=== PATIENT | female | born 1950 | race Caucasian/White ===

== ENCOUNTER → 2020-09-26 | Outpatient (CLI) | payer MEDICARE, OTHER | LOC: M.RAD 14:36 | PROVIDERS: ATTEND Nurse Practitioner Family | DX: N63.10 Unspecified lump in the right breast, unspecified quadrant (principal); R92.8 Other abnormal and inconclusive findings on diagnostic imaging of breast ==

== ENCOUNTER → 2020-09-27 | Outpatient (CLI) | payer MEDICARE, OTHER ==
--- NOTE | 2020-10-03 15:07 | PATH ---
[address] [address] PATHOLOGY RPT PROCEDURE Name: LENA NEWSOME Room: [facility].#: [id number] Admission: 09/27/20 Date of : 46 Discharge: Report #: [id number] Path Case #: [id number] [facility] Accession Number: [id number] . 01 Material submitted: . PART A: breast - RIGHT BREAST 10 OCLOCK 1CM FROM NIPPLE. Modifiers: right, 10:00, 1CM PART B: breast - RIGHT BREAST 10 OCLOCK 4CM FROM NIPPLE. Modifiers: right, 10:00, 4CM . 01 Clinical history: . US/MAMMOTOME BX RT BREAST/MASS A- 2.38 X 3.09 X 1.32 CM B- 2.24 X 2.52 X 1.71 CM . 02 Diagnosis: A. 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 SEE COMMENT. . B. Right breast, 10:00, 4 cm from nipple, image-guided core biopsies: - INFILTRATING DUCTAL ADENOCARCINOMA, HIGH-GRADE, SPANNING 12 MM. - DCIS, NUCLEAR GRADE III, COMEDO TYPE. SEE COMMENT. (DAKOTA:jose; 09/29/2020) . . Surgical Pathology Cancer Case Summary- Specimen A . Protocol posting date: May 2019 . INVASIVE CARCINOMA OF THE BREAST: Biopsy . Procedure ___ Not specified . Specimen Laterality ___ Right . Tumor Site ___ Clock position: 10 o'clock ___ Distance from nipple: 1 cm . Tumor Size ___ Greatest dimension of largest invasive focus >1 mm: at least 10 mm . Histologic Type ___ Invasive carcinoma of no special type (ductal) [place] [address] PATHOLOGY RPT PROCEDURE Name: LENA NEWSOME Room: [facility]#: [id number] Admission: 09/27/20 Date of : 46 Discharge: Report #: [id number] Path Case #: [id number] Histologic Grade (Flori Histologic Score) . Glandular (Acinar)/Tubular Differentiation ___ Score 3 (<10% of tumor area forming glandular/tubular structures) . Nuclear Pleomorphism ___ Score 3 (vesicular nuclei, often with prominent nucleoli, exhibiting marked variation in size and shape, occasionally with very large and bizarre forms) . Mitotic Rate ___ Score 3 . Overall Grade ___ Grade 3 (scores of 8 or 9) . Ductal Carcinoma In Situ (DCIS) ___ Present . Architectural Patterns ___ [place] . Nuclear Grade ___ Grade III (high) . Necrosis ___ Present, central (expansive "comedo" necrosis) . Lymphovascular Invasion ___ Not identified . Microcalcifications ___ Not identified . . . Surgical Pathology Cancer Case Summary- Specimen B . Protocol posting date: May 2019 . INVASIVE CARCINOMA OF THE BREAST: Biopsy . Procedure ___ Not specified . Specimen Laterality ___ [place] [address] PATHOLOGY RPT PROCEDURE Name: BENNYLENA Room: [facility]#: [id number] Admission: 09/27/20 Date of : 46 Discharge: Report #: [id number] Path Case #: [id number] ___ Clock position: 10 o'clock ___ Distance from nipple: 4 cm . Tumor Size ___ Greatest dimension of largest invasive focus >1 mm: at least 12 mm . Histologic Type ___ Invasive carcinoma of no special type (ductal) . Histologic Grade (Flori Histologic Score) . Glandular (Acinar)/Tubular Differentiation ___ Score 3 (<10% of tumor area forming glandular/tubular structures) . Nuclear Pleomorphism ___ Score 3 (vesicular nuclei, often with prominent nucleoli, exhibiting marked variation in size and shape, occasionally with very large and bizarre forms) . Mitotic Rate ___ Score 3 . Overall Grade ___ Grade 3 (scores of 8 or 9) . Ductal Carcinoma In Situ (DCIS) ___ Present . Architectural Patterns ___ [place] . Nuclear Grade ___ Grade III (high) . Necrosis ___ Present, central (expansive "comedo" necrosis) . Lymphovascular Invasion ___ Not identified . Microcalcifications ___ Not identified . Ancillary Studies ____ Biomarker studies pending block B1 . . (DAKOTA:jose; 09/29/2020) S 09/29/2020 [address] [place] [address] PATHOLOGY RPT PROCEDURE Name: LENA NEWSOME Room: [facility]#: [id number] Admission: 09/27/20 Date of : 46 Discharge: Report #: [id number] Path Case #: [id number] . 02 Comment: The tumor in specimen A infiltrates as frequent rounded nests. Properly controlled immunohistochemical studies performed on both A1 and A2 show the following results, supporting the diagnosis: . p63: Negative Smooth muscle myosin heavy chain: Negative . The tumor in specimen B infiltrates as more angulated nests and bands of neoplasm, but otherwise appears histologically very similar. Approximately 80% of the submitted tissues of specimen A are involved by invasive neoplasm and approximately 95% of submitted tissues of specimen B is involved. Breast tumor profile studies are pending on B1 and will be the subject of an addendum report. If breast tumor profile studies are desired on specimen A as well, they can be requested for either A1 or A2. Specimens A and B reviewed with Dr. Mindy Perales on 09/29/2020, who agrees with the diagnoses. Gayathri Ramirez ([facility] Breast Navigator) notified at approximately 1025 on 09/30/2020. (DAKOTA:jose; 09/29/2020) . 02 Addendum: . Special studies report received from [facility], [address] [place] [address], [address], [place], [address], on case [id number], labeled with their number [id number], dated 10/03/2020. . Breast/Prognostic Marker Analysis . Specimen Site: Rt Breast, 10:00, 4 Cm FN, Image Guided Core Biopsies, Breast Cancer Specimen ID #: [id number] . ER (Estrogen Receptor) Negative Percent: 0.00 Analysis: Manual Staining Intensity: Not Applicable Internal Control: Present and Positive Comments: ER IHC reviewed with Dr aMrline Limon (surgical pathologist) with concurrence. . AL (Progesterone Receptor) Negative Percent: 0.00 Analysis: Manual Staining Intensity: Not Applicable Internal Control: [place] [address] PATHOLOGY RPT PROCEDURE Name: LENA NEWSOME Room: [facility]#: [id number] Admission: 09/27/20 Date of : 46 Discharge: Report #: [id number] Path Case #: [id number] . HER2 Negative Score: 1+ Analysis: Manual . Ki-67 High Proliferation Percent: 60.00% Analysis: Manual . Time to Fixation (Cold Ischemic Time): 1 minute Duration of Fixation: 13 Hours 32 Minutes Type of Fixative: 10% Neutral Buffered Formalin . at [employer]. Jake Ladd MD Pathologist . . Methodology: The HER2 Receptor protein expression is analyzed using the [place] HER2 rabbit monoclonal antibody (clone [id number]). This assay is used for diagnostic determination of the HER2 protein over-expression in paraffin embedded, formalin fixed breast cancer tissue on the [place] Benchmark. The specimen is processed using a secondary antibody-HRP conjugate detection system. The membrane staining of the tumor is determined either by manual score or image analysis. This antibody is intended for in vitro diagnostic use. The score is reported as 0, 1+, 2+, or 3+. This test is used for clinical purposes. . A rabbit monoclonal antibody (clone SP1) that recognized the Estrogen Receptor is used to perform immunohistochemistry on routinely fixed (formalin) paraffin embedded tissue on the [place] Benchmark. The specimen is processed using a secondary antibody-HRP conjugate detection system. The percentage of stained tumor nuclei is determined either manually or by image analysis. This test is intended for in vitro diagnostic use. This test is used for clinical purposes. . A rabbit monoclonal antibody (clone 1E2) that recognized the Progesterone Receptor is used to perform immunohistochemistry on routinely fixed (formalin) paraffin embedded tissue on the [place] Benchmark. The specimen is processed using a secondary antibody-HRP conjugate detection system. The percentage of stained tumor nuclei is determined either manually or by image analysis. This test is intended for in vitro diagnostic use. This test is used for clinical purposes. . A rabbit monoclonal antibody (clone 30-9) that recognized [place] [address] PATHOLOGY RPT PROCEDURE Name: LENA NEWSOME Room: [facility]#: [id number] Admission: 09/27/20 Date of : 46 Discharge: Report #: [id number] Path Case #: [id number] perform immunohistochemistry on routinely fixed (formalin) paraffin embedded tissue on the [employer]. The specimen is processed using a secondary antibody-HRP conjugate detection system. The percentage of stained tumor nuclei is determined either manually or by image analysis. This test is intended for in vitro diagnostic use. This test is used for clinical purposes. . Intended Use: This antibody is intended for in vitro diagnostic (IVD) use. HER2 (4B5) is a rabbit monoclonal antibody intended for the semi-quantitative detection of HER2 antigen in sections of formalin-fixed, paraffin embedded neoplastic tissue. . This antibody is intended for in vitro diagnostic (IVD) use. Estrogen Receptor (ER) (SP1) is a rabbit monoclonal antibody (IgG) that is intended for the qualitative detection of estrogen receptor (ER) antigen in sections of formalin-fixed, paraffin-embedded tissue. ER is a rabbit monoclonal antibody that recognizes human estrogen receptor alpha. . This antibody is intended for in vitro diagnostic (IVD) use. Progesterone Receptor (AL) (1E2) is a rabbit monoclonal antibody (IgG) that is intended for the qualitative detection of progesterone receptor (AL) antigen in sections of formalin fixed, paraffin embedded tissue. AL is a rabbit monoclonal antibody that recognizes the A and B forms of the human progesterone receptor. . This antibody is intended for in vitro diagnostic (IVD) use. Ki-67 (30-9) is a rabbit monoclonal antibody (IgG) directed against C-terminal portion of Ki-67 antigen. Staining for Ki-67 can be used to aid in assessing the proliferative activity of normal and neoplastic tissue. Ki-67 is a nuclear protein expressed in proliferating cells. During the cell cycle, the Ki-67 antigen is present in the G1, S, G2 and M phase but is absent in the G0 (quiescent phase). . Disclaimer: This Test was performed by [facility] [email or web address] at [address], [place] [address], [place], [address]. . [facility] is a business unit of [email or web address] a wholly-owned subsidiary of [employer]. . This assay has not been validated on decalcified tissues. Results should be interpreted with caution if this specimen was decalcified given the likelihood of false negativity on decalcified specimens. . Any image(s) that accompany this report is/are a media sales representative image(s) only and should not be used to render a [place] [address] PATHOLOGY RPT PROCEDURE Name: LENA NEWSOME [facility] [id number] Admission: 09/27/20 Date of : 46 Discharge: Report #: [id number] Path Case #: [id number] This interpretation is contingent on the specimen and the clinical information received. . For any special tests/stains performed, known positive cells or tissues are tested with each marker and examined to ensure positivity. Positive and negative internal controls, if present, react appropriately. . This analysis is an adjunct to the evaluation of the referring physician and does not represent a final diagnosis. . The immunohistochemistry tests performed at [email or web address] were validated on tissue fixed in 10% neutral buffered formalin. The performance characteristics of the tests performed on tissue processed in other fixatives is not known. . HER2 testing at [email or web address] is performed in compliance with the 2018 updated ASCO/CAP Clinical Practice Guideline Focused Update. If the result is EQUIVOCAL (2+), it must be confirmed by an alternative assay such as FISH. . REFERENCE: Sherly Paniagua Allison KH, et al: Human epidermal growth factor receptor 2 testing in breast cancer: ASCO/CAP clinical practice guideline focused update. Arch Pathol Lab Med. 2018;142:7794-2602. . HER2 and ER/AL ASCO/CAP guidelines require fixation in neutral buffered formalin for a minimum of 6 and a maximum of 72 hours. Fixation times less than 6 hours may not adequately preserve cell proteins. Fixation times longer than 72 hours may cause excess cross-linking of proteins reducing the antigen available for staining. Either scenario can cause reduced staining; hence false negative results are possible and should be considered for these situations if the HER2 IHC score is less than 3+ or ER or AL is negative (no staining or <1% positive). It is recommended that specimens fixed longer than 72 hours with HER2 IHC scores less than 3+ be confirmed by HER2 FISH. The time from biopsy/excision to fixation in formalin (cold ischemic time) must be less than 1 hour. Time to fixation (cold ischemic time) greater than 1 hour should be interpreted with caution. HER2 testing, mainly HER2 by FISH, is particularly vulnerable since excessive cold ischemic time results in preferential loss of HER2 probe signals that may lead to false negative results. Use of unstained slides cut more than 6 weeks before analysis is not recommended. . ER/PgR testing at [email or web address] is performed in compliance with the ASCO/CAP Clinical Practice Guidelines. If the result for ER is 1-10% it is reported as Low Positive, < 1% is Negative and > 10% is Positive. PgR is reported as Negative if < 1% and Positive if > or equal to 1%. . REFERENCE: Edelmira BEAR, Sherly BAPTISTE, Kathy Miller,et al. [facility] [place] [address] PATHOLOGY RPT PROCEDURE Name: LENA NEWSOME Room: [facility].#: [id number] Admission: 09/27/20 Date of : 46 Discharge: Report #: [id number] Path Case #: [id number] progesterone receptor testing in breast cancer. ASCO/CAP guideline update. Arch Pathol Lab Med. 2020;144:545-563. . . SCORE STAINING PATTERN IN TUMOR CELLS INTERPRETATION RESULTS 0 No staining observed or incomplete, faint membrane staining in less than or equal to 10% of tumor cells. Negative 1+ Incomplete, faint membrane staining in greater than 10% of tumor cells. Negative 2+ Weak to moderate complete membrane staining observed in greater than 10% of tumor cells. Equivocal* *Must be confirmed by alternative assay (IHC/FISH/Dual EFRAÍN) 3+ Intense, complete membrane staining in greater than 10% of tumor cells. Positive . A complete copy of the report is on file. . Professional and Technical services performed by [employer] at [address] [facility] [address], [place] [address]. . (DAKOTA:dontae 10/03/2020) . [place]/10/03/2020 Addendum Electronically Signed by Mika Morales MD, Pathologist . 02 Electronically signed: . Mika Morales MD, Pathologist NPI- [id number] . 01 Gross description: . A. The specimen is received in formalin, labeled "Lena Newsome, right breast 10:00 1 cm from nipple" received as multiple soft mckeon-yellow tissue cores measuring up to 1.2 cm x 0.2 cm. The specimen is entirely submitted A1-A2. The specimen is removed from the patient at 1005 hours and placed in formalin at 1011 hours on Sunday, September 27, 2020. The specimen is removed from formalin at 11:30pm. The specimen is in formalin for greater than 6 hours and less than 72 hours. . . B. The specimen is received in formalin, labeled "Lena Newsome, right breast 10:00 -4 cm from nipple" received as [place] [address] PATHOLOGY RPT PROCEDURE Name: LENA NEWSOME Room: [facility]#: [id number] Admission: 09/27/20 Date of : 46 Discharge: Report #: [id number] Path Case #: [id number] tissue cores measuring up to 1.5 cm x 0.2 cm. The specimen is entirely submitted B1-B2. The specimen is removed from the patient at 0957 hours and placed in formalin at 0958 hours on Sunday, September 27, 2020. The specimen is removed from formalin at 11:30pm. The specimen is in formalin for greater than 6 hours and less than 72 hours. ([facility]; 09/27/2020) BRODY/BRODY 09/29/2020 [facility]3 Local . 02 Pathologist provided ICD-10: C50.911, D05.11 . 02 CPT . 513539, 059266, V97661, B09093 Specimen Comment: A courtesy copy of this report has been sent to [phone] Specimen Comment: [phone], Specimen Comment: Report sent to ,DR RAMIREZ / DR DE OLIVEIRA Specimen Comment: Report sent to Performed at: 01 [facility] [address] [facility] [address], [place] [address] MD Kolton Aaron MD Phone: [phone] Performed at: 02 [facility] [place] [address], [place], [place] [address] MD Mika Morales MD Phone: [phone]
== END | disposition home or self-care (01) ==
LOC: M.ULTRA 07:51
PROVIDERS: ATTEND Nurse Practitioner Family
DX: C50.911 Malignant neoplasm of unspecified site of right female breast (principal); R92.1 Mammographic calcification found on diagnostic imaging of breast

== ENCOUNTER → 2020-10-17 | Outpatient (CLI) | payer MEDICARE, OTHER ==
[~2020-10-17] MED LIST: LISINOPRIL10 MG PO; METFORMIN HCL500 M3 PO; ULTRAM 50MG TAB50 MG PO
[2020-10-17 13:02] LABS: CREATININE 1.2 mg/dL (0.6-1.3)
== END ==
LOC: M.LAB 12:30 → M.MRI 13:30
PROVIDERS: ATTEND Surgery
DX: C50.911 Malignant neoplasm of unspecified site of right female breast (principal); N63.11 Unspecified lump in the right breast, upper outer quadrant; N64.89 Other specified disorders of breast

== ENCOUNTER → 2020-10-18 | Outpatient (CLI) | payer MEDICARE, OTHER ==
[~2020-10-18] MED LIST changes: -ULTRAM 50MG TAB50 MG PO
--- NOTE | 2020-10-18 15:23 | 2DMMODE ---
[place] [address] 2 D/M-MODE ECHOCARDIOGRAM Name: BENNYJESSE Maeve Room: [facility]#: [id number] Admission: 10/18/20 Attend Phys: Lori Espinoza MD Discharge: Date of : 46 Date of Service: 10/18/20 1522 Report #: [id number] THIS REPORT FOR: cc: Bethany Valladares Stefany RNP Liston, Michael J. MD [facility] ~ APPROVED REPORT Study performed: 10/18/2020 14:00:24 EXAM: Comprehensive 2D, Doppler, and color-flow Echocardiogram Patient Location: Out-Patient BSA: 2.04 HR: 70 bpm BP: 132/80 mmHg Other Information Study Quality: Good Indications Beast Cancer 2D Dimensions IVSd: 12.19 (7-11mm) LVOT Diam: 20.30 (18-24mm) LVDd: 48.67 mm PWd: 10.45 (7-11mm) Ascending Ao: 30.30 (22-36mm) LVDs: 26.42 (25-40mm) Aortic Root: 22.68 mm Volumes Left Atrial Volume (Systole) LA ESV Index: 14.50 mL/m2 Aortic Valve AoV Peak Serafin.: 2.46 m/s AO Peak Gr.: 24.14 mmHg LVOT Max P.67 mmHg AO Mean Gr.: 13.73 mmHg LVOT Mean P.90 mmHg LVOT Max V: 0.96 m/s AO V2 VTI: 64.50 cm LVOT Mean V: 0.64 m/s KULDIP (VTI): 1.32 cm2 LVOT V1 VTI: 26.39 cm AI [place]: 2.55 m/s2 AI PHT: 480.55 [place] [address] 2 D/M-MODE ECHOCARDIOGRAM Name: JESSE ZAPATA Room: [facility]#: [id number] Admission: 10/18/20 Attend Phys: Lori Espinoza MD Discharge: Date of : 46 Date of Service: 10/18/20 1522 Report #: [id number] Mitral Valve E/A Ratio: 1.17 MV Decel. Time: 314.94 ms MV E Max Serafin.: 1.31 m/s MV PHT: 91.33 ms MVA (PHT): 2.41 cm2 TDI E/Lateral E': 21.83 E/Medial E': 26.20 Medial E' Serafin.: 0.05 m/s Lateral E' Serafin.: 0.06 m/s Pulmonary Valve PV Peak Serafin.: 0.81 m/s PV Peak Gr.: 2.64 mmHg Tricuspid Valve RAP Estimate: 5.00 mmHg TR Peak Gr.: 19.47 mmHg RVSP: 24.47 mmHg PA Pressure: 24.47 mmHg Left Ventricle The left ventricle is normal size. There is normal LV segmental wall motion. There is normal left ventricular wall thickness. Left ventricular systolic function is normal. LVEF is 60-65%. Transmitral Doppler flow pattern suggests impaired LV relaxation. Right Ventricle The right ventricle is normal size. The right ventricular systolic function is normal. Atria The left atrium size is normal. The right atrium size is normal. Aortic Valve Aortic valve is calcified. Mild aortic regurgitation. Moderate aortic stenosis. Mitral Valve Mild mitral annular calcification. Mitral valve leaflets are mildly thickened. Mild mitral regurgitation. Mild mitral stenosis. Tricuspid Valve The tricuspid valve is normal in structure. [place] [address] 2 D/M-MODE ECHOCARDIOGRAM Name: JOSETTEZULMAJESSE Room: [facility]#: [id number] Admission: 10/18/20 Attend Phys: Lori Espinoza MD Discharge: Date of : 46 Date of Service: 10/18/20 1522 Report #: [id number] Pulmonic Valve The pulmonary valve is normal in structure. There is no pulmonic valvular regurgitation. Great Vessels The aortic root is normal in size. IVC is normal in size and collapses >50% with inspiration. Pericardium There is no pericardial effusion. <Conclusion> The left ventricle is normal size. There is normal left ventricular wall thickness. Left ventricular systolic function is normal. LVEF is 60-65%. Transmitral Doppler flow pattern suggests impaired LV relaxation. Aortic valve is calcified. Mild aortic regurgitation. Moderate aortic stenosis. Mild mitral annular calcification. Mitral valve leaflets are mildly thickened. Mild mitral regurgitation. Mild mitral stenosis. Mild tricuspid regurgitation. IVC is normal in size and collapses >50% with inspiration. <ELECTRONICALLY SIGNED> By: Justyn Damian MD, FACC 10/18/20 1522 1522 152 Justyn Damian MD, FACC /INF
== END ==
LOC: M.CRD 13:38
PROVIDERS: ATTEND Internal Medicine Hematology & Oncology
DX: I08.3 Combined rheumatic disorders of mitral, aortic and tricuspid valves (principal); R55 Syncope and collapse

== ENCOUNTER → 2020-10-25 | Day surgery (SDC) | payer MEDICARE, OTHER ==
[~2020-10-25] MED LIST changes: +ULTRAM 50MG TAB50 MG PO
--- NOTE | ~2020-10-25 | OP ---
[address] [address] OPERATIVE REPORT Name: JESSE ZAPATA Room: [facility]#: [id number] Admission: 10/25/20 Attend Phys: Sirisha Salgado DO Discharge: Date of : 46 Report #: [id number] THIS REPORT FOR: cc: Bethany Valladares Stefany RNP Brock, Christie M. DO ~ DOC #: [id number] Sirisha Salgado DO DATE OF SURGERY: 10/25/2020 PREPROCEDURE DIAGNOSIS: Right breast cancer. POSTPROCEDURE DIAGNOSIS: Right breast cancer. FINDINGS: Fluoroscopy time was 12 seconds. Normal IJ anatomy was seen on ultrasound. The tip of the catheter was seen in the superior vena cava on fluoroscopy. SURGEON: Sirisha Salgado DO TEACHER HOME THERAPY: Rei Reynaga MS4. PROCEDURE PERFORMED: Left internal jugular ultrasound and fluoroscopy-guided chemo port placement with surgeon interpretation of images. ANESTHESIA: LMA and local. ESTIMATED BLOOD LOSS: 5 mL. DRAINS: None. SPECIMENS: None. COMPLICATIONS: None. CONDITION: Stable. DISPOSITION: PACU to home. HISTORY OF PRESENT ILLNESS: The patient is a pleasant 70-year-old female who is seeing me for a right breast cancer. She needs to have neoadjuvant chemotherapy and thus, needs a chemo port. Risks and benefits were discussed in detail and the patient agreed to proceed. DESCRIPTION OF PROCEDURE: The patient was brought to the operating room. She was laid supine on the operating room table. SCDs were placed on bilateral [address] [place] [address] OPERATIVE REPORT Name: JESSE ZAPATA Room: [facility]#: [id number] Admission: 10/25/20 Attend Phys: Sirisha Salgado DO Discharge: Date of : 46 Report #: [id number] lower extremities. Ancef was given in the perioperative period. General LMA anesthesia was induced by Anesthesia without difficulty. The patient was placed in slight Trendelenburg. Left neck and chest were prepped and draped in the standard sterile fashion. Time-out was performed to verify the patient and procedure. Ultrasound was brought onto the field and the left internal jugular vein was visualized and appeared to be patent. A 10 mL of 0.5% Marcaine were injected in the area over the left neck. Utilizing the ultrasound, the internal jugular vein was then accessed with 1 pass of the needle, wire passed without difficulty. The wire was again visualized within the internal jugular on the ultrasound. Ultrasound was then handed off. Fluoroscopy was brought onto the field and the wire was visualized in the superior vena cava. A 10 mL of 0.5% Marcaine mixed with 1% lidocaine were then injected under the left clavicle. Incision was made with an 11 blade. Cautery was used for hemostasis. A pocket was then created using a combination of blunt and cautery dissection. An 11 blade was used to make a rocío on the wire on the left neck. The dilator and the breakaway catheter were then passed over the wire without difficulty. Wire and dilator were removed, chemo port tubing was introduced and fluoroscopy was brought onto the field. The chemo port tubing was visualized in the superior vena cava. The breakaway dilator was removed. Tubing was tunneled into our previously created pocket. Tubing was connected to our subcutaneous port. The port was accessed and we had excellent draw and flush. The port was sutured into place on the left and right side using 1 stitch of 3-0 Prolene. Final fluoroscopy images were taken and the tip of the catheter was visualized in the superior vena cava at the atriocaval junction. The wounds were closed in layered fashion using deep and superficial stitches of 3-0 Vicryl in an inverted interrupted fashion. Skin wounds were closed with 4-0 Monocryl. A total of 20 mL of 0.5% Marcaine mixed with 1% lidocaine were injected around the port. Wounds were then cleansed and covered with Dermabond. The patient was allowed to awaken from anesthesia, was extubated and transported to the recovery room with no further difficulties. Counts were correct at the conclusion of the case. DO GILMA Dickson/KELLI By: 1124 [id number] Salgado DO /nt
[2020-10-25 10:21] LABS: HEMATOCRIT 41.1 % (37.0-47.0); MCH 29.9 pg (26.0-34.0); MCHC 34.1 g/dL (28.0-37.0); MCV 87.9 fL (80.0-100.0); RBC 4.68 mil/uL (4.20-5.00); RDW-CV 13.6 % (10.5-14.5); WBC 10.4 thou/uL (4.0-11.0)
[2020-10-25 10:27] LABS: CALCIUM 9.4 mg/dL (8.5-10.1); CREATININE 1.4 mg/dL (0.6-1.3); POTASSIUM 4.3 mmol/L (3.5-5.1)
--- NOTE | 2020-10-25 10:27 | EKG ---
[place] [address] ELECTROCARDIOGRAM REPORT Name: JESSE ZAPATA Maeve Room: [facility]#: [id number] Admission: 10/25/20 Attend Phys: Sirisha Salgado, Discharge: Date of : 46 Date of Service: 10/25/20 1022 Report #: [id number] THIS REPORT FOR: //name// [facility] Test Date: 2020-10-25 Test Time: 10:22:08 Pat Name: JESSE ZAPATA Department: Room: Gender: F Electronics Scale Tester: : 1950 Requested By: Lubna Martin Order Number: [id number] Edelmira MD: Lance Kelly Measurements Intervals [place] Rate: 72 P: 36 VA: 156 QRS: -74 QRSD: 137 T: 48 QT: 450 QTc: 493 Interpretive Statements Sinus rhythm RBBB and LAFB Probable left ventricular hypertrophy No previous ECG available for comparison Electronically Signed On 10-25-2020 10:27:29 CDT by Lance Kelly [email or web address] <ELECTRONICALLY SIGNED> By: Lance Kelly MD, [facility] 10/25/20 1027 1022 1022 Lance Kelly MD, [facility] /EPI
== END | disposition home or self-care (01) ==
LOC: M.SUR 05:49
PROVIDERS: Anesthesiology; ATTEND Surgery
DX: Z45.2 Encounter for adjustment and management of vascular access device (principal); C50.911 Malignant neoplasm of unspecified site of right female breast; I10 Essential (primary) hypertension; E11.9 Type 2 diabetes mellitus without complications; Z98.890 Other specified postprocedural states; Z79.899 Other long term (current) drug therapy; Z98.51 Tubal ligation status

== ENCOUNTER → 2020-12-05 | Outpatient (CLI) | payer MEDICARE, OTHER | LOC: M.ULTRA 08:46 | PROVIDERS: ATTEND Internal Medicine Hematology & Oncology | DX: C50.411 Malignant neoplasm of upper-outer quadrant of right female breast (principal); N63.11 Unspecified lump in the right breast, upper outer quadrant; Z17.1 Estrogen receptor negative status [ER-] ==

== ENCOUNTER 2020-12-26 13:49 | Emergency (ER) | payer MEDICARE, OTHER ==
[~2020-12-26] VITALS: Ht 157.5 cm; Wt 102.5 kg
[~2020-12-26 13:49] MED LIST changes: -LISINOPRIL10 MG PO; +LISINOPRIL20 MG PO
[2020-12-26] MEDS ORDERED: OMEPRAZOLE 20 M20 M1 PO (14:14)
[2020-12-26] MEDS ORDERED: ACYCLOVIR 400400 MG PO (14:14)
[2020-12-26] MEDS ORDERED: COMPAZINE10 MG PO (14:15)
[2020-12-26] MEDS ORDERED: BACTRIM DS TAB1 EAC1 PO (14:16)
[2020-12-26] MEDS ORDERED: FUROSEMIDE 20 M20 MG PO (14:16)
[2020-12-26] MEDS ORDERED: [UNRECOGNIZED DRUG - OTHER] IV (14:16)
[2020-12-26] MEDS ORDERED: PACLITAXEL6 MG/1 ML IVPB (14:28)
[2020-12-26 14:45] LABS: ABSOLUTE LYMPHOCYTES 1.5 thou/uL (0.8-5.3); ABSOLUTE MONOCYTES 0.2 thou/uL (0.0-1.2); ABSOLUTE NEUTROPHILS 5.3 thou/uL (1.6-8.1); BASOPHILS 0.5 %; EOSINOPHILS 0.2 %; HEMATOCRIT 30.6 % (37.0-47.0); HEMOGLOBIN 10.1 gm/dL (12.0-15.0); LYMPHOCYTES 21.1 %; MCH 29.9 pg (26.0-34.0); MCHC 33.1 g/dL (28.0-37.0); MCV 90.3 fL (80.0-100.0); MONOCYTES 2.6 %; MPV 7.7 fl. (7.2-11.1); NUCLEATED RBCS 0 /100WBC; PLATELET COUNT* 309 thou/uL (150-400); POLYS 75.6 %; RBC 3.38 mil/uL (4.20-5.00); RDW-CV 18.7 % (10.5-14.5)
[2020-12-26 14:52] LABS: CALCIUM 8.3 mg/dL (8.5-10.1); CREATININE 1.3 mg/dL (0.6-1.3); POTASSIUM 4.5 mmol/L (3.5-5.1)
[2020-12-26 14:57] LABS: ALBUMIN 2.8 g/dL (3.4-5.0); TOTAL BILIRUBIN 0.7 mg/dL (<0.1-1.0); TOTAL PROTEIN 5.8 g/dL (6.4-8.2)
[2020-12-26 16:20] VITALS: BP 126/72
== END 2020-12-26 16:20 | disposition home or self-care (01) ==
LOC: M.ERS 13:49
PROVIDERS: Emergency Medicine Emergency Medical Services
DX: S61.412A Laceration without foreign body of left hand, initial encounter (principal); L03.114 Cellulitis of left upper limb; L03.113 Cellulitis of right upper limb; E11.9 Type 2 diabetes mellitus without complications; I10 Essential (primary) hypertension; Z98.51 Tubal ligation status; Z85.3 Personal history of malignant neoplasm of breast; Z79.899 Other long term (current) drug therapy; Z79.2 Long term (current) use of antibiotics; X58.XXXA Exposure to other specified factors, initial encounter; Y93.89 Activity, other specified; Y92.89 Other specified places as the place of occurrence of the external cause; Y99.8 Other external cause status

== ENCOUNTER 2020-12-26 17:41 | Inpatient (IN) | payer MEDICARE, OTHER ==
[~2020-12-26] VITALS: Ht 157.5 cm; Wt 116.6 kg
--- NOTE | ~2020-12-26 | CON ---
[address] [address] CONSULTATION Name: JESSE ZAPATA Room: [address] IN M.R.#: [id number] Admission: 12/27/20 Attend Phys: Maria Eugenia Rhodes MD Discharge: Date of : 46 Report #: [id number] THIS REPORT FOR: cc: Bethany Valladares Stefany RNP Elia, Manana MD ~ DATE OF CONSULTATION: 12/30/2020 REASON FOR CONSULTATION: Metastatic breast cancer. REQUESTING PHYSICIAN: Maria Eugenia Rhodes MD HISTORY OF PRESENT ILLNESS: The patient is a 70-year-old woman who is undergoing neoadjuvant chemotherapy for triple negative breast cancer. She was diagnosed with stage IB triple negative breast cancer in 09/2020. She started neoadjuvant chemotherapy with single agent Taxol because of multiple comorbidities and poor performance status. Initially, she tolerated chemo well. Last few weeks, she has been having accumulating toxicities. I saw her 2 weeks ago and determined that she would not be able to complete a full neoadjuvant chemotherapy. She will not be able to take Adriamycin and Cytoxan. I have recommended to complete 12 weekly cycles of Taxol and proceed with surgery. She, so far, completed 10 weeks of Taxol. She has been having frequent falls. Last week, she presented to [facility] Emergency Room with falls and confusion. She had a brain MRI done which did not show any parenchymal metastatic disease. She is admitted to the [facility] where she was brought by her daughter after found another episode with confusion and breathing heavily. She is admitted to the hospital. She is noted to have bilateral hand cellulitis. It was noted that she had drainage from the Port-A-Cath site. She is on antibiotics and Oncology consult is requested. She is somewhat better today. Mentally, she is alert. She recognizes me. She is oriented x 3. She has complaints of extreme weakness. Denies chest pain. Denies headaches. She has complaints of swelling of her hands. Denies dysuria or cough. PAST MEDICAL HISTORY: Significant for triple negative breast cancer, hypertension, diabetes mellitus and GERD. SOCIAL HISTORY: She does not smoke currently, has good family support. Does not drink alcohol. FAMILY HISTORY: Noncontributory. PHYSICAL EXAMINATION: VITAL SIGNS: Blood pressure 160/80, heart rate 89 and temperature 98.2. GENERAL: Well-developed, well-nourished female, appearing weak, but not in pain, [place] [address] CONSULTATION Name: JESSE ZAPATA Room: [address] IN [facility]#: [id number] Admission: 12/27/20 Attend Phys: Maria Eugenia Rhodes MD Discharge: Date of : 46 Report #: [id number] HEENT: No thrush. NECK: Supple. There is no supraclavicular or axillary lymphadenopathy. ABDOMEN: Soft. SKIN: Bilateral hand erythema with skin breakdown and edema. MENTAL STATUS: See above. LABORATORY DATA: White count 5.9, hemoglobin 8.4 and platelets 280. Sodium 140, potassium 4.4, BUN 21 and creatinine 1.2. Urinalysis: WBC more than 25, nitrites negative and bacteria 3+. Chest x-ray negative. CT scan of head does not show metastatic disease. ASSESSMENT AND PLAN: Cellulitis. Probably the patient has toxicity from chemotherapy with overlying cellulitis. Agree with antibiotics. Recommend to remove the Port-A-Cath. The patient is not a candidate for further IV cytotoxic chemotherapy. It is not necessary at this point. Multiple falls and deconditioning secondary to toxicity of chemotherapy. She will need physical therapy and probably retirement unit placement with rehabilitation. Breast cancer. She is not a candidate for further chemotherapy. Chemotherapy will be discontinued. Hopefully, the patient can recover in 4-5 weeks to proceed with surgery. I will consider oral Xeloda adjuvantly if her condition improves. Thank you very much for allowing us to participate in the care of this patient. By: [id number] Espinoza MD /felice
[~2020-12-26 17:41] MED LIST changes: +ACYCLOVIR 400400 MG PO; +BACTRIM DS TAB1 EAC1 PO; +COMPAZINE10 MG PO; +FUROSEMIDE 20 M20 MG PO; +OMEPRAZOLE 20 M20 M1 PO; +PACLITAXEL6 MG/1 ML IVPB; +[UNRECOGNIZED DRUG - OTHER] IV
[2020-12-26 17:45] VITALS: BP 122/51
[2020-12-26 21:58] LABS: HEMATOCRIT 29.3 % (37.0-47.0); HEMOGLOBIN 9.8 gm/dL (12.0-15.0); MCH 30.1 pg (26.0-34.0); MCHC 33.4 g/dL (28.0-37.0); MCV 90.2 fL (80.0-100.0); MPV 7.3 fl. (7.2-11.1); RBC 3.25 mil/uL (4.20-5.00); RDW-CV 18.6 % (10.5-14.5); WBC 6.6 thou/uL (4.0-11.0)
[2020-12-26 22:06] LABS: CALCIUM 8.2 mg/dL (8.5-10.1); CREATININE 1.3 mg/dL (0.6-1.3); POTASSIUM 4.9 mmol/L (3.5-5.1)
[2020-12-26 23:37] LABS: APTT 25.5 Seconds (25.0-31.3); INR 0.9; PROTIME 10.1 Seconds (9.20-11.50)
[2020-12-26 23:49] LABS: URINE BILIRUBIN NEGATIVE (Negative); URINE BLOOD 2+ (Negative); URINE CLARITY SL CLOUDY; URINE COLOR YELLOW; URINE GLUCOSE-RANDOM NEGATIVE (Negative); URINE KETONES NEGATIVE (Negative); URINE NITRITE-REFLEX NEGATIVE (Negative); URINE PROTEIN TRACE (Negative); URINE SPECIFIC GRAVITY 1.015 (1.005-1.030)
[2020-12-26 23:58] LABS: URINE LEUKOCYTES-REFLEX 3+ (Negative)
[2020-12-27] VITALS (10 sets, daily range): BP systolic 89–149; BP diastolic 30–77
[2020-12-27 00:40] LABS: CASTS None Seen /LPF (None Seen); SQUAMOUS 4-10 Moderate /LPF (0-3)
[2020-12-27 00:41] LABS: URINE RBC 3-10 Few /HPF (0-2); URINE WBC-REFLEX >25 Many /HPF (0-5)
[2020-12-27 00:42] LABS: CRYSTALS None Seen /LPF (None Seen)
[2020-12-27 10:06] LABS: CHOLESTEROL 178 mg/dL (<200); HDL CHOLESTEROL 63 mg/dL (>40); LDL CHOLESTEROL 84 mg/dL (<100); SERUM ASSESSMENT Clear; TC:HDL 2.8 Ratio (Not establshd); TRIGLYCERIDE 158 mg/dL (<150); VLDL 32 mg/dL (<40)
--- NOTE | 2020-12-27 17:45 | EKG ---
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
[2020-12-28] VITALS (9 sets, daily range): BP systolic 101–147; BP diastolic 50–100
[2020-12-28 07:57] LABS: ABSOLUTE LYMPHOCYTES 1.3 thou/uL (0.8-5.3); ABSOLUTE MONOCYTES 0.3 thou/uL (0.0-1.2); ABSOLUTE NEUTROPHILS 4.3 thou/uL (1.6-8.1); BASOPHILS 0.4 %; EOSINOPHILS 0.3 %; HEMATOCRIT 27.2 % (37.0-47.0); HEMOGLOBIN 9.2 gm/dL (12.0-15.0); LYMPHOCYTES 22.1 %; MCH 30.8 pg (26.0-34.0); MCV 90.6 fL (80.0-100.0); MONOCYTES 5.2 %; MPV 7.6 fl. (7.2-11.1); NUCLEATED RBCS 0 /100WBC; PLATELET COUNT* 283 thou/uL (150-400); RDW-CV 18.3 % (10.5-14.5); WBC 5.9 thou/uL (4.0-11.0)
[2020-12-28 08:23] LABS: CALCIUM 7.9 mg/dL (8.5-10.1); CREATININE 1.1 mg/dL (0.6-1.3)
[2020-12-29 00:43] VITALS: BP 130/61
[2020-12-29 04:00] VITALS: BP 130/57
[2020-12-29 04:13] LABS: HEMOGLOBIN 8.6 gm/dL (12.0-15.0); MCHC 33.1 g/dL (28.0-37.0); MCV 90.6 fL (80.0-100.0); MPV 7.8 fl. (7.2-11.1); RBC 2.87 mil/uL (4.20-5.00); RDW-CV 18.8 % (10.5-14.5); WBC 5.1 thou/uL (4.0-11.0)
[2020-12-29 05:37] LABS: POTASSIUM 4.1 mmol/L (3.5-5.1)
[2020-12-29 07:36] VITALS: BP 138/39
[2020-12-29 12:00] VITALS: BP 123/41
[2020-12-29 16:00] VITALS: BP 133/52
[2020-12-29 19:45] VITALS: BP 107/41
[2020-12-30] VITALS (8 sets, daily range): BP systolic 116–199; BP diastolic 41–92
[2020-12-30 04:38] LABS: HEMATOCRIT 24.1 % (37.0-47.0); HEMOGLOBIN 8.4 gm/dL (12.0-15.0); MCH 31.4 pg (26.0-34.0); MCHC 34.7 g/dL (28.0-37.0); MCV 90.4 fL (80.0-100.0); MPV 7.4 fl. (7.2-11.1); RBC 2.67 mil/uL (4.20-5.00); RDW-CV 18.8 % (10.5-14.5); WBC 5.9 thou/uL (4.0-11.0)
[2020-12-30 04:59] LABS: CALCIUM 8.1 mg/dL (8.5-10.1); CREATININE 1.2 mg/dL (0.6-1.3); POTASSIUM 4.4 mmol/L (3.5-5.1)
[2020-12-31 02:28] VITALS: BP 125/53
[2020-12-31 05:22] VITALS: BP 142/58
[2020-12-31 06:13] LABS: CALCIUM 8.4 mg/dL (8.5-10.1); CREATININE 1.1 mg/dL (0.6-1.3); POTASSIUM 4.7 mmol/L (3.5-5.1)
[2020-12-31 06:32] LABS: HEMATOCRIT 26.5 % (37.0-47.0); HEMOGLOBIN 8.9 gm/dL (12.0-15.0); MCH 30.7 pg (26.0-34.0); MCHC 33.7 g/dL (28.0-37.0); MCV 91.2 fL (80.0-100.0); MPV 7.3 fl. (7.2-11.1); RBC 2.91 mil/uL (4.20-5.00); RDW-CV 19.3 % (10.5-14.5); WBC 8.6 thou/uL (4.0-11.0)
[2020-12-31 09:00] VITALS: BP 161/60
[2020-12-31 12:21] VITALS: BP 136/56
[2020-12-31 16:53] VITALS: BP 165/61
[2020-12-31 20:00] VITALS: BP 111/58; BP 127/77
[2021-01-01 02:05] VITALS: BP 142/60
[2021-01-01 04:15] LABS: HEMATOCRIT 25.4 % (37.0-47.0); HEMOGLOBIN 8.7 gm/dL (12.0-15.0); MCHC 34.4 g/dL (28.0-37.0); MCV 90.2 fL (80.0-100.0); MPV 7.2 fl. (7.2-11.1); RBC 2.81 mil/uL (4.20-5.00); RDW-CV 19.1 % (10.5-14.5); WBC 8.2 thou/uL (4.0-11.0)
[2021-01-01 04:18] LABS: CALCIUM 8.5 mg/dL (8.5-10.1); CREATININE 1.2 mg/dL (0.6-1.3); POTASSIUM 4.6 mmol/L (3.5-5.1)
[2021-01-01 05:09] VITALS: BP 105/67
[2021-01-01 09:00] VITALS: BP 132/70
[2021-01-01 12:19] VITALS: BP 140/63
[2021-01-01 14:01] LABS: HEMATOCRIT 27.6 % (37.0-47.0); HEMOGLOBIN 9.4 gm/dL (12.0-15.0); MCV 91.2 fL (80.0-100.0); MPV 6.8 fl. (7.2-11.1); NUCLEATED RBCS 0 /100WBC; PLATELET COUNT* 356 thou/uL (150-400); RBC 3.03 mil/uL (4.20-5.00); RDW-CV 19.4 % (10.5-14.5); WBC 8.9 thou/uL (4.0-11.0)
[2021-01-01 14:12] LABS: ALBUMIN 2.3 g/dL (3.4-5.0); CALCIUM 8.6 mg/dL (8.5-10.1); CREATININE 1.3 mg/dL (0.6-1.3); MAGNESIUM 1.5 mg/dL (1.8-2.4); POTASSIUM 5.1 mmol/L (3.5-5.1); TOTAL BILIRUBIN 0.3 mg/dL (<0.1-1.0); TOTAL PROTEIN 5.5 g/dL (6.4-8.2)
[2021-01-01 14:36] LABS: ABSOLUTE LYMPHOCYTES 2.9 thou/uL (0.8-5.3); ABSOLUTE MONOCYTES 1.3 thou/uL (0.0-1.2); ABSOLUTE NEUTROPHILS 4.6 thou/uL (1.6-8.1)
[2021-01-01 14:37] LABS: PLATELET ESTIMATE ADEQUATE
[2021-01-01 16:32] VITALS: BP 154/58
[2021-01-01 20:00] VITALS: BP 146/48
[2021-01-02] VITALS: BP 142/42
[2021-01-02 04:00] VITALS: BP 152/52
[2021-01-02 05:01] LABS: CALCIUM 8.9 mg/dL (8.5-10.1); CREATININE 1.2 mg/dL (0.6-1.3); POTASSIUM 4.8 mmol/L (3.5-5.1)
[2021-01-02 05:03] LABS: HEMATOCRIT 25.5 % (37.0-47.0); HEMOGLOBIN 8.3 gm/dL (12.0-15.0); MCH 30.1 pg (26.0-34.0); MCHC 32.6 g/dL (28.0-37.0); MCV 92.3 fL (80.0-100.0); MPV 7.2 fl. (7.2-11.1); RBC 2.77 mil/uL (4.20-5.00); RDW-CV 20.6 % (10.5-14.5); WBC 8.6 thou/uL (4.0-11.0)
[2021-01-02 08:00] VITALS: BP 92/64
--- NOTE | 2021-01-02 10:18 | EKG ---
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
[2021-01-02 12:00] VITALS: BP 162/60
[2021-01-02 16:00] VITALS: BP 141/60
[2021-01-02 20:00] VITALS: BP 149/69
[2021-01-03] VITALS (8 sets, daily range): BP systolic 96–170; BP diastolic 35–75
[2021-01-03 05:26] LABS: HEMATOCRIT 25.1 % (37.0-47.0); HEMOGLOBIN 8.7 gm/dL (12.0-15.0); MCH 31.3 pg (26.0-34.0); MCHC 34.6 g/dL (28.0-37.0); MCV 90.5 fL (80.0-100.0); MPV 6.6 fl. (7.2-11.1); RBC 2.78 mil/uL (4.20-5.00); RDW-CV 20.5 % (10.5-14.5); WBC 8.1 thou/uL (4.0-11.0)
[2021-01-03 05:46] LABS: CALCIUM 8.8 mg/dL (8.5-10.1); CREATININE 1.2 mg/dL (0.6-1.3); POTASSIUM 4.3 mmol/L (3.5-5.1)
[2021-01-04] VITALS (7 sets, daily range): BP systolic 122–175; BP diastolic 41–63
[2021-01-04 14:36] LABS: HEMATOCRIT 24.2 % (37.0-47.0); HEMOGLOBIN 8.2 gm/dL (12.0-15.0); MCV 91.4 fL (80.0-100.0); MPV 6.7 fl. (7.2-11.1); RBC 2.65 mil/uL (4.20-5.00); RDW-CV 21.2 % (10.5-14.5); WBC 11.4 thou/uL (4.0-11.0)
[2021-01-04 14:51] LABS: CALCIUM 8.5 mg/dL (8.5-10.1); CREATININE 1.2 mg/dL (0.6-1.3); POTASSIUM 4.6 mmol/L (3.5-5.1)
[2021-01-05 02:29] LABS: HEMATOCRIT 29.8 % (37.0-47.0); MCH 30.5 pg (26.0-34.0); MCHC 33.5 g/dL (28.0-37.0); MCV 91.1 fL (80.0-100.0); MPV 6.7 fl. (7.2-11.1); RBC 3.27 mil/uL (4.20-5.00); RDW-CV 21.1 % (10.5-14.5); WBC 11.5 thou/uL (4.0-11.0)
[2021-01-05 02:39] LABS: CALCIUM 8.7 mg/dL (8.5-10.1); CREATININE 1.1 mg/dL (0.6-1.3); POTASSIUM 4.3 mmol/L (3.5-5.1)
[2021-01-05 03:09] VITALS: BP 12/52
[2021-01-05 05:57] VITALS: BP 127/74
[2021-01-05 10:06] VITALS: BP 135/55
[2021-01-05] MEDS ORDERED: LIPITOR 40 MG T40 M1 PO (10:38)
[2021-01-05] MEDS ORDERED: FUROSEMIDE 20 M20 MG PO (10:38)
[2021-01-05] MEDS ORDERED: ASPIRIN EC81 M1 PO (10:38)
--- NOTE | 2021-01-05 14:49 | 2DMMODE ---
[place] [address] 2 D/M-MODE ECHOCARDIOGRAM Name: JESSE ZAPATA Room: [address] IN [facility]#: [id number] Admission: 12/27/20 Attend Phys: Maria Eugenia Rhodes, Discharge: Date of : 46 Date of Service: 01/05/21 1449 Report #: [id number] THIS REPORT FOR: cc: Bethany Valladares Stefany RNP Biggs, F. Douglas MD [facility] ~ ADDENDUM APPROVED REPORT Study performed: 12/27/2020 13:32:48 EXAM: Limited 2D Echocardiogram Patient Location: In-Patient Room #: 200 Status: routine BSA: 2.09 HR: 75 bpm BP: 125/45 mmHg Rhythm: NSR Other Information Study Quality: Good Indications Murmur Echo Enhancing Agent Indication: Rule out Shunt Agent(s) / Amount(s) Used: Agitated Saline 10 cc 2D Dimensions IVSd: 12.00 (7-11mm) LVOT Diam: 19.09 (18-24mm) LVDd: 45.59 mm PWd: 10.91 (7-11mm) LVDs: 26.87 (25-40mm) Aortic Root: 27.51 mm Volumes Left Atrial Volume (Systole) LA ESV Index: 44.10 mL/m2 Aortic Valve AoV Peak Serafin.: 2.84 m/s AO Peak Gr.: 32.25 mmHg LVOT Max P.49 mmHg AO Mean Gr.: 18.59 mmHg LVOT Mean P.69 mmHg LVOT Max V: 1.17 m/[place] [address] 2 D/M-MODE ECHOCARDIOGRAM Name: JESSE ZAPATA Room: [address] IN ..#: [id number] Admission: 12/27/20 Attend Phys: Maria Eugenia Rhodes, Discharge: Date of : 46 Date of Service: 01/05/21 1449 Report #: [id number] AO V2 VTI: 62.28 cm LVOT Mean V: 0.75 m/s KULDIP (VTI): 1.34 cm2 LVOT V1 VTI: 29.11 cm AI Converse: 4.17 m/s2 AI PHT: 267.51 ms Mitral Valve MV Mean Gr.: 6.63 mmHg MV Decel. Time: 240.99 ms MV PHT: 69.89 ms MVA (PHT): 3.15 cm2 Tricuspid Valve RAP Estimate: 5.00 mmHg TR Peak Gr.: 29.18 mmHg RVSP: 34.00 mmHg PA Pressure: 34.00 mmHg Left Ventricle The left ventricle is normal size. There is normal LV segmental wall motion. Mild concentric left ventricular hypertrophy. The left ventricular systolic function is normal. LVEF is 60-65%. Right Ventricle The right ventricle is normal size. The right ventricular systolic function is normal. Atria Left atrium is mildly dilated. The interatrial septum is intact with no evidence for an atrial septal defect. The right atrium size is normal. Aortic Valve Moderate aortic valve sclerosis. Moderate aortic regurgitation. Moderate aortic stenosis. Mitral Valve There is mitral annular calcification. Mild mitral regurgitation. No evidence of mitral valve stenosis. Tricuspid Valve Mild tricuspid regurgitation. Mild pulmonary hypertension. Pulmonic Valve Pulmonic valve is not well visualized. Great Vessels The aortic root is normal in size. IVC is [place] [address] 2 D/M-MODE ECHOCARDIOGRAM Name: JESSE ZAPATA Room: [address] IN ..#: [id number] Admission: 12/27/20 Attend Phys: Maria Eugenia Rhodes, Discharge: Date of : 46 Date of Service: 01/05/21 1449 Report #: [id number] collapses >50% with inspiration. Pericardium There is no pericardial effusion. <Conclusion> The left ventricle is normal size. Mild concentric left ventricular hypertrophy. The left ventricular systolic function is normal. LVEF is 60-65%. Left atrium is mildly dilated. Moderate aortic valve sclerosis. Moderate aortic regurgitation. Moderate aortic stenosis. There is mitral annular calcification. Mild mitral regurgitation. Mild tricuspid regurgitation. Mild pulmonary hypertension. IVC is normal in size and collapses >50% with inspiration. The interatrial septum is intact with no evidence for an atrial septal defect. <ELECTRONICALLY SIGNED> By: Candelario Cantrell MD, FACC 01/05/21 1449 1449 1449 Candelario Cantrell MD, FACC /INF
[2021-01-05 16:00] VITALS: BP 179/85
[2021-01-06 05:33] VITALS: BP 97/48
[2021-01-06 07:56] LABS: HEMATOCRIT 27.2 % (37.0-47.0); HEMOGLOBIN 9.2 gm/dL (12.0-15.0); MCH 30.8 pg (26.0-34.0); MCHC 33.7 g/dL (28.0-37.0); MCV 91.5 fL (80.0-100.0); MPV 6.9 fl. (7.2-11.1); RBC 2.97 mil/uL (4.20-5.00); RDW-CV 21.1 % (10.5-14.5)
[2021-01-06 08:01] LABS: CALCIUM 8.4 mg/dL (8.5-10.1); POTASSIUM 3.6 mmol/L (3.5-5.1)
[2021-01-06 08:15] VITALS: BP 128/53
[2021-01-06 12:22] VITALS: BP 162/52
--- NOTE | 2021-01-11 08:41 | EEG ---
[address] [address] EEG STUDY REPORT Name: JESSE ZAPATA Room: [address] IN ..#: [id number] Admission: 12/27/20 Attend Phys: Maria Eugenia Rhodes MD Discharge: 01/06/21 Date of : 46 Report #: [id number] THIS REPORT FOR: cc: Bethany Valladares Stefany RNP Khosla, Parveen K. MD ~ DATE OF SERVICE: 01/03/2021 This patient is being evaluated for some episode of syncope. EEG was done by placing the electrode by standard 10-20 system of electrode placement. Both referential and sequential montages were used for recording. Background activity in this patient's EEG is about 8-9 Hz and 30 microvolt. It is a symmetrical activity. The patient went to sleep that is associated with bilateral slowing and vertex sharp waves. Throughout the record, no active epileptiform activity was noticed. IMPRESSION: This patient's EEG is intermixed with theta range slowing on both sides, but no active epileptiform activity was noticed. Thank you very much for this referral. <ELECTRONICALLY SIGNED> By: Broderick Johnson MD 01/11/21 0841 1438 1459Broderick Johnson MD /nt
== END 2021-01-06 15:15 | DRG 280 ==
LOC: M.ERS 17:41 → M.TBA-ER 12-27 00:28 → M.2W 12-27 00:28
PROVIDERS: Family Medicine; Internal Medicine; Internal Medicine Gastroenterology; Personal Emergency Response Attendant; Registered Nurse; ADMIT Internal Medicine; ATTEND Internal Medicine
DX: I35.0 Nonrheumatic aortic (valve) stenosis (principal); I21.A1 Myocardial infarction type 2; I63.9 Cerebral infarction, unspecified; N18.6 End stage renal disease; I12.0 Hypertensive chronic kidney disease with stage 5 chronic kidney disease or end stage renal disease; L03.114 Cellulitis of left upper limb; L03.113 Cellulitis of right upper limb; E87.1 Hypo-osmolality and hyponatremia; N39.0 Urinary tract infection, site not specified; Z68.42 Body mass index [BMI] 45.0-49.9, adult; I82.C12 Acute embolism and thrombosis of left internal jugular vein; Z20.822 Contact with and (suspected) exposure to COVID-19; I95.9 Hypotension, unspecified; E11.9 Type 2 diabetes mellitus without complications; K21.9 Gastro-esophageal reflux disease without esophagitis; T45.1X5A Adverse effect of antineoplastic and immunosuppressive drugs, initial encounter; E66.01 Morbid (severe) obesity due to excess calories; F31.9 Bipolar disorder, unspecified; E78.5 Hyperlipidemia, unspecified; I25.10 Atherosclerotic heart disease of native coronary artery without angina pectoris; G89.29 Other chronic pain; D64.9 Anemia, unspecified; E11.40 Type 2 diabetes mellitus with diabetic neuropathy, unspecified; C50.912 Malignant neoplasm of unspecified site of left female breast; E83.42 Hypomagnesemia; Z92.21 Personal history of antineoplastic chemotherapy; Y92.89 Other specified places as the place of occurrence of the external cause; W18.39XA Other fall on same level, initial encounter; Z99.2 Dependence on renal dialysis; Z98.51 Tubal ligation status; Y93.89 Activity, other specified; Y99.8 Other external cause status; Z79.4 Long term (current) use of insulin

== ENCOUNTER 2021-02-24 12:12 | Inpatient (IN) | payer MEDICARE, OTHER ==
[~2021-02-24] VITALS: Ht 157.5 cm; Wt 102.7 kg
--- NOTE | ~2021-02-24 | PROC ---
[address] [address] PROCEDURE REPORT Name: JOSETTEZULMAJESSE Room: [address] IN M.R.#: [id number] Admission: 02/24/21 Attend Phys: Maria Eugenia Rhodes MD Discharge: 03/02/21 Date of : 46 Report #: [id number] THIS REPORT FOR: cc: Bethany Valladares Stefany RNP [facility],Medical Records Staff ~ For GI report, please see the Provation report in Perceptive 7 content. By: 0702Medical Records Staff [facility] /ALICIA
--- NOTE | ~2021-02-24 | PROC ---
[address] [address] PROCEDURE REPORT Name: BENNYJESSETRENT NAVARRO Room: [address] IN .R.#: [id number] Admission: 02/24/21 Attend Phys: Maria Eugenia Rhodes MD Discharge: Date of : 46 Report #: [id number] THIS REPORT FOR: cc: Bethany Valladares Stefany RNP [facility],Medical Records Staff ~ For GI report, please see the Provation report in Perceptive 7 content. By: 0838Medical Records Staff [facility] /ALICIA
[~2021-02-24 12:12] MED LIST changes: +ASPIRIN EC81 M1 PO; +LIPITOR 40 MG T40 M1 PO
[2021-02-24 12:16] VITALS: BP 113/45
[2021-02-24 13:09] LABS: NUCLEATED RBCS 0 /100WBC
[2021-02-24 13:11] LABS: ABSOLUTE EOSINOPHILS 0.1 thou/uL (0.0-0.7); ABSOLUTE LYMPHOCYTES 2.1 thou/uL (0.8-5.3); ABSOLUTE MONOCYTES 1.6 thou/uL (0.0-1.2); ABSOLUTE NEUTROPHILS 10.1 thou/uL (1.6-8.1); BASOPHILS 0.1 %; EOSINOPHILS 0.8 %; HEMATOCRIT 23.1 % (37.0-47.0); HEMOGLOBIN 7.5 gm/dL (12.0-15.0); MCH 31.4 pg (26.0-34.0); MCHC 32.6 g/dL (28.0-37.0); MCV 96.3 fL (80.0-100.0); MONOCYTES 11.4 %; MPV 6.2 fl. (7.2-11.1); PLATELET COUNT* 368 thou/uL (150-400); POLYS 72.7 %; RDW-CV 14.8 % (10.5-14.5); WBC 13.9 thou/uL (4.0-11.0)
[2021-02-24] MEDS ORDERED: VITAMIN C500 M2 PO (13:13)
[2021-02-24] MEDS ORDERED: NEURONTIN 300M300 M2 PO (13:14)
[2021-02-24] MEDS ORDERED: ELIQUIS5 M1 PO (13:14)
[2021-02-24] MEDS ORDERED: FAMOTIDINE 20 M20 MG PO (13:14)
[2021-02-24] MEDS ORDERED: ZINC50 M1 PO (13:15)
[2021-02-24] MEDS ORDERED: CIPRO250 M2 PO (13:15)
[2021-02-24] MEDS ORDERED: SENNA8.8 MG/5 M PO (13:15)
[2021-02-24] MEDS ORDERED: MAPAP ARTHRITI650 MG PO (13:16)
[2021-02-24] MEDS ORDERED: PROBIOTIC1 EAC7 PO (13:16)
[2021-02-24] MEDS ORDERED: BISACODYL10 MG RECTAL (13:17)
[2021-02-24] MEDS ORDERED: APAP W/CODEINE1 TA2 PO (13:17)
[2021-02-24] MEDS ORDERED: MILK OF MA400 MG/5 M PO (13:17)
[2021-02-24 13:19] LABS: CALCIUM 8.3 mg/dL (8.5-10.1); CREATININE 1.2 mg/dL (0.6-1.3); POTASSIUM 4.4 mmol/L (3.5-5.1)
[2021-02-24 13:23] LABS: ALBUMIN 1.9 g/dL (3.4-5.0); TOTAL BILIRUBIN 0.7 mg/dL (<0.1-1.0); TOTAL PROTEIN 5.6 g/dL (6.4-8.2)
[2021-02-24 13:24] LABS: URINE BILIRUBIN NEGATIVE (Negative); URINE BLOOD 3+ (Negative); URINE CLARITY CLOUDY; URINE COLOR DARK YELLOW; URINE GLUCOSE-RANDOM NEGATIVE (Negative); URINE KETONES NEGATIVE (Negative); URINE PROTEIN 2+ (Negative); URINE SPECIFIC GRAVITY <= 1.005 (1.005-1.030)
[2021-02-24 13:27] LABS: URINE LEUKOCYTES-REFLEX 3+ (Negative); URINE NITRITE-REFLEX POSITIVE (Negative)
[2021-02-24 13:34] LABS: BACTERIA-REFLEX >30 Many /HPF (None Seen); CRYSTALS None Seen /LPF (None Seen); SQUAMOUS 0-3 Few /LPF (0-3); URINE RBC >20 Many /HPF (0-2); URINE WBC-REFLEX >25 Many /HPF (0-5)
[2021-02-24 13:50] LABS: CASTS None Seen /LPF (None Seen)
[2021-02-24 15:30] VITALS: BP 117/51
[2021-02-24 16:00] VITALS: BP 131/61
--- NOTE | 2021-02-24 17:29 | EKG ---
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
[2021-02-24 19:30] VITALS: BP 114/41
[2021-02-25 00:36] VITALS: BP 123/49
[2021-02-25 04:31] VITALS: BP 91/52
[2021-02-25 08:20] LABS: HEMATOCRIT 24.1 % (37.0-47.0); HEMOGLOBIN 7.9 gm/dL (12.0-15.0); MCH 31.8 pg (26.0-34.0); MCHC 32.8 g/dL (28.0-37.0); MCV 96.9 fL (80.0-100.0); MPV 6.1 fl. (7.2-11.1); RBC 2.49 mil/uL (4.20-5.00); RDW-CV 14.6 % (10.5-14.5); WBC 11.3 thou/uL (4.0-11.0)
[2021-02-25 08:43] LABS: ALBUMIN 1.9 g/dL (3.4-5.0); CALCIUM 8.5 mg/dL (8.5-10.1); CREATININE 1.1 mg/dL (0.6-1.3); MAGNESIUM 2.1 mg/dL (1.8-2.4); POTASSIUM 4.2 mmol/L (3.5-5.1); TOTAL BILIRUBIN 0.7 mg/dL (<0.1-1.0); TOTAL PROTEIN 5.9 g/dL (6.4-8.2)
[2021-02-25 09:10] VITALS: BP 115/40
[2021-02-25 13:01] VITALS: BP 126/40
[2021-02-25 17:33] VITALS: BP 122/55
[2021-02-25 19:55] VITALS: BP 111/31
[2021-02-26 00:30] VITALS: BP 114/32
[2021-02-26 04:00] VITALS: BP 100/31
[2021-02-26 07:56] LABS: HEMATOCRIT 20.9 % (37.0-47.0); MCH 32.2 pg (26.0-34.0); MCHC 33.7 g/dL (28.0-37.0); MCV 95.7 fL (80.0-100.0); RBC 2.19 mil/uL (4.20-5.00); RDW-CV 14.6 % (10.5-14.5); WBC 12.7 thou/uL (4.0-11.0)
[2021-02-26 08:00] VITALS: BP 90/40
[2021-02-26 08:32] LABS: ALBUMIN 1.7 g/dL (3.4-5.0); CALCIUM 8.1 mg/dL (8.5-10.1); CREATININE 1.1 mg/dL (0.6-1.3); POTASSIUM 4.5 mmol/L (3.5-5.1); TOTAL BILIRUBIN 0.4 mg/dL (<0.1-1.0); TOTAL PROTEIN 5.3 g/dL (6.4-8.2)
[2021-02-26 11:20] VITALS: BP 108/33
[2021-02-26 16:45] VITALS: BP 137/41
[2021-02-26 20:30] VITALS: BP 104/41
[2021-02-27 00:35] VITALS: BP 137/46
[2021-02-27 04:35] LABS: HEMATOCRIT 23.2 % (37.0-47.0); HEMOGLOBIN 7.8 gm/dL (12.0-15.0); MCH 32.3 pg (26.0-34.0); MCHC 33.5 g/dL (28.0-37.0); MCV 96.5 fL (80.0-100.0); MPV 5.9 fl. (7.2-11.1); RBC 2.4 mil/uL (4.20-5.00); RDW-CV 14.4 % (10.5-14.5); WBC 13.7 thou/uL (4.0-11.0)
[2021-02-27 04:54] LABS: CALCIUM 8.4 mg/dL (8.5-10.1); CREATININE 1.1 mg/dL (0.6-1.3); MAGNESIUM 2.1 mg/dL (1.8-2.4); POTASSIUM 4.4 mmol/L (3.5-5.1)
[2021-02-27 05:40] VITALS: BP 112/33
[2021-02-27 09:00] VITALS: BP 127/45
[2021-02-27 13:01] VITALS: BP 121/43
--- NOTE | 2021-02-27 16:49 | CON ---
[address] [address] CONSULTATION Name: JESSE ZAPATA Room: [address] IN .R.#: [id number] Admission: 02/24/21 Attend Phys: Maria Eugenia Rhodes MD Discharge: Date of : 46 Report #: [id number] THIS REPORT FOR: cc: Bethany Valladares Stefany RNP Namin, Farid M. MD ~ DATE OF CONSULTATION: 02/24/2021 REASON FOR CONSULT: Anemia and hematochezia. HISTORY OF PRESENT ILLNESS: This is a 70-year-old female with history of breast cancer who also had history of sepsis and CVA back in December. The patient resides in snf and was transferred to the hospital as they had reported hematochezia versus hematuria and also anemia with hemoglobin of 7.5. The patient reports that her chemotherapy was stopped due to her chronic and acute medical condition. She denies any upper or lower GI symptoms except intermittent diarrhea and constipation, which has been chronic. She denies dysphagia, odynophagia, GERD, dyspepsia or abdominal pain. She has never had any endoscopic evaluation in the past. PAST MEDICAL HISTORY: Significant for history of dyslipidemia, gastroesophageal reflux disease, hypertension, diabetes, CVA, cellulitis, sepsis, aortic valve stenosis, breast cancer, UTI, and orthostatic hypotension. ALLERGIES: No known drug allergy. MEDICATIONS: Please refer to JUN. SOCIAL HISTORY: The patient has had a recent CVA in December and currently resides in a snf. She does not have any history of tobacco or alcohol use. FAMILY HISTORY: Negative for GI malignancy. PHYSICAL EXAMINATION: VITAL SIGNS: Reveals blood pressure of 117/51, respirations 16, pulse 73, temperature 100.2. LUNGS: Clear. CARDIOVASCULAR: Regular. ABDOMEN: Soft, nontender, nondistended. Bowel sounds are positive. LABORATORY DATA: Reveals sodium of 137, potassium 4.4, BUN is 28, creatinine 1.2, glucose is 121. AST is 15, ALT is 14, alkaline phosphatase is 176. Iron saturation is 10 with serum iron of 17 and TIBC of 165. WBC is 13.9 with hemoglobin of 7.5 and platelets of 368. UA [place] [address] CONSULTATION Name: JESSE ZAPATA Room: [address]#: [id number] Admission: 02/24/21 Attend Phys: Maria Eugenia Rhodes MD Discharge: Date of : 46 Report #: [id number] infection with more than 25 wbc's. IMAGING: CT of abdomen and pelvis is pending. ASSESSMENT AND PLAN: The patient with iron deficiency anemia, who has never had endoscopic evaluation. There is a report that she may have hematochezia versus hematuria. There is evidence of urinary tract infection. The patient also has chronic gastroesophageal reflux disease, for which she takes proton pump inhibitor therapy. She will need endoscopic evaluation, which we will probably do on Saturday or Saturday. Meanwhile, we will continue monitoring her hemoglobin and hematocrit and replace iron as she has iron deficiency anemia. <ELECTRONICALLY SIGNED> By: Starr Hamilton MD 02/27/21 1649 163 1937Starr Hamilton MD /nt
[2021-02-27 20:00] VITALS: BP 171/27
[2021-02-28 00:15] VITALS: BP 125/82
[2021-02-28 04:53] VITALS: BP 132/88
[2021-02-28 07:16] LABS: HEMATOCRIT 23.8 % (37.0-47.0); MCH 31.9 pg (26.0-34.0); MCHC 33.4 g/dL (28.0-37.0); MCV 95.3 fL (80.0-100.0); MPV 5.8 fl. (7.2-11.1); RBC 2.5 mil/uL (4.20-5.00); RDW-CV 14.6 % (10.5-14.5); WBC 11.5 thou/uL (4.0-11.0)
[2021-02-28 07:53] LABS: ALBUMIN 2.1 g/dL (3.4-5.0); CALCIUM 8.6 mg/dL (8.5-10.1); CREATININE 0.9 mg/dL (0.6-1.3); POTASSIUM 4.1 mmol/L (3.5-5.1); TOTAL BILIRUBIN 0.5 mg/dL (<0.1-1.0); TOTAL PROTEIN 6.2 g/dL (6.4-8.2)
[2021-02-28 08:53] VITALS: BP 149/64
[2021-02-28 12:00] VITALS: BP 151/42
[2021-02-28 21:02] VITALS: BP 158/62
[2021-03-01 04:48] LABS: HEMATOCRIT 21.4 % (37.0-47.0); MCH 31.8 pg (26.0-34.0); MCHC 32.9 g/dL (28.0-37.0); MCV 96.7 fL (80.0-100.0); MPV 5.9 fl. (7.2-11.1); RBC 2.21 mil/uL (4.20-5.00); RDW-CV 14.8 % (10.5-14.5); WBC 11.7 thou/uL (4.0-11.0)
[2021-03-01 05:01] LABS: CALCIUM 8.3 mg/dL (8.5-10.1); CREATININE 0.8 mg/dL (0.6-1.3); POTASSIUM 3.7 mmol/L (3.5-5.1)
[2021-03-01 08:00] VITALS: BP 134/49
[2021-03-01 16:43] VITALS: BP 142/61
[2021-03-01 20:00] VITALS: BP 130/47
[2021-03-01 22:55] VITALS: BP 143/52
[2021-03-02 08:00] VITALS: BP 124/42
[2021-03-02 10:02] LABS: ABSOLUTE EOSINOPHILS 0.3 thou/uL (0.0-0.7); ABSOLUTE LYMPHOCYTES 2.6 thou/uL (0.8-5.3); ABSOLUTE MONOCYTES 1.1 thou/uL (0.0-1.2); BASOPHILS 0.4 %; EOSINOPHILS 2.1 %; HEMATOCRIT 22.3 % (37.0-47.0); HEMOGLOBIN 7.3 gm/dL (12.0-15.0); LYMPHOCYTES 21.9 %; MCH 32.2 pg (26.0-34.0); MCHC 32.9 g/dL (28.0-37.0); MCV 97.8 fL (80.0-100.0); MONOCYTES 9.2 %; MPV 5.8 fl. (7.2-11.1); NUCLEATED RBCS 0 /100WBC; PLATELET COUNT* 426 thou/uL (150-400); POLYS 66.4 %; RBC 2.28 mil/uL (4.20-5.00); WBC 12.1 thou/uL (4.0-11.0)
[2021-03-02 10:08] LABS: CALCIUM 8.2 mg/dL (8.5-10.1); CREATININE 0.9 mg/dL (0.6-1.3)
[2021-03-02] MEDS ORDERED: PROTONIX40 M2 PO (10:37)
[2021-03-02] MEDS ORDERED: CEFDINIR300 MG PO (10:37)
[2021-03-02 12:20] VITALS: BP 124/42
--- NOTE | 2021-03-03 11:08 | PATH ---
[address] [address] PATHOLOGY RPT PROCEDURE Name: BENNYLENA RAMON Room: [address] IN .R.#: [id number] Admission: 02/24/21 Date of : 46 Discharge: 03/02/21 Report #: [id number] Path Case #: [id number] [facility] Accession Number: [id number] . 01 Material submitted: . colon - ASCENDING COLON POLYP X2. Modifiers: ascending, X2 . 01 Clinical history: . COLONOSCOPY . 02 Diagnosis: Ascending colon polyp x2: - Two tubular adenomas, negative for high-grade dysplasia. (DAKOTA:jose; 03/02/2021) QMS 03/02/2021 1526 Local . 02 Electronically signed: . Mika Morales MD, Pathologist NPI- [id number] . 01 Gross description: . The specimen is submitted in formalin, labeled "Banham, Lena, ascending colon polyp x2". Received are 2 segments of pale gerard tissue ranging in size from 0.1 to 0.4 cm in maximum dimensions. The specimen is submitted entirely in cassette A1. ([facility]; 03/01/2021) NRI/NRI 03/01/20212038 Local . 02 Pathologist provided ICD-10: D12.2 . 02 CPT . 866955 Specimen Comment: A courtesy copy of this report has been sent to [phone], [phone] Specimen Comment: [phone], Specimen Comment: Report sent to , DR DE OLIVEIRA / DR MANCERA Performed at: [address] [facility] [address], [place] [id number] MD Kolton Aaron MD Phone: [phone] Performed at: [address] [facility] [address] [place] [id number] MD Mika Morales MD Phone: [phone]
== END 2021-03-02 13:00 | DRG 377 ==
LOC: M.ERS 12:12 → M.TBA-ER 13:51 → M.2W 13:51 → M.3W 03-01 22:53
PROVIDERS: Emergency Medicine Emergency Medical Services; Internal Medicine; ADMIT Internal Medicine; ATTEND Internal Medicine
DX: K92.2 Gastrointestinal hemorrhage, unspecified (principal); E43 Unspecified severe protein-calorie malnutrition; N39.0 Urinary tract infection, site not specified; R65.10 Systemic inflammatory response syndrome (SIRS) of non-infectious origin without acute organ dysfunction; Z68.41 Body mass index [BMI] 40.0-44.9, adult; E66.01 Morbid (severe) obesity due to excess calories; K21.9 Gastro-esophageal reflux disease without esophagitis; K64.8 Other hemorrhoids; K64.4 Residual hemorrhoidal skin tags; D50.9 Iron deficiency anemia, unspecified; K63.5 Polyp of colon; R29.6 Repeated falls; I10 Essential (primary) hypertension; K44.9 Diaphragmatic hernia without obstruction or gangrene; B96.89 Other specified bacterial agents as the cause of diseases classified elsewhere; E11.9 Type 2 diabetes mellitus without complications; N20.0 Calculus of kidney; K59.00 Constipation, unspecified; E78.5 Hyperlipidemia, unspecified; Z20.822 Contact with and (suspected) exposure to COVID-19; Z86.718 Personal history of other venous thrombosis and embolism; Z86.73 Personal history of transient ischemic attack (TIA), and cerebral infarction without residual deficits; Z85.3 Personal history of malignant neoplasm of breast; Z92.21 Personal history of antineoplastic chemotherapy; Z92.3 Personal history of irradiation; Z87.440 Personal history of urinary (tract) infections; Z79.899 Other long term (current) drug therapy; Z79.82 Long term (current) use of aspirin; Z79.01 Long term (current) use of anticoagulants